=== PATIENT | female | born 1970 | race Caucasian/White ===

== ENCOUNTER 2019-10-09 20:42 | Emergency (ER) | payer OTHER ==
[~2019-10-09] VITALS: Ht 160 cm; Wt 89.8 kg
[2019-10-09 20:46] VITALS: BP 153/74
[2019-10-09 20:54] VITALS: BP 153/74
[2019-10-09] MEDS ORDERED: ATIVAN ONE (20:58)
[2019-10-09] MEDS ORDERED: ZOFRAN ODT ONE (20:59)
[2019-10-09] MEDS ORDERED: ADACEL VIAL IM ONE ×2 (21:00→21:08)
[2019-10-09] MEDS ORDERED: ATIVAN PO STA (21:00)
[2019-10-09] MEDS ORDERED: ZOFRAN ODT SL PRN (21:00)
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
--- NOTE | 2019-10-09 21:33 | DIREP ---
PROCEDURE:XRAY FOOT MIN 3 VWS-RT COMPARISON:None. INDICATIONS:injury FINDINGS:AP, lateral, and oblique view. BONES:No evidence of acute fracture. Small inferior calcaneal bone spur. JOINTS:Normal. SOFT TISSUES:Marked dorsal foot soft tissue swelling. OTHER:No additional findings. CONCLUSION:No evidence of acute fracture. Significant dorsal foot soft tissue swelling. Dictated by: Mauro Barba MD on 10/09/2019 at 09:30 PM
== END 2019-10-09 21:42 | disposition home or self-care (01) ==
LOC: ER 20:42 → EEVIPCON 20:42 → ER 21:42
DX: S90.31XA Contusion of right foot, initial encounter (principal); F43.20 Adjustment disorder, unspecified; E07.9 Disorder of thyroid, unspecified; I10 Essential (primary) hypertension; Z63.4 Disappearance and death of family member; Z79.899 Other long term (current) drug therapy; Z90.710 Acquired absence of both cervix and uterus; Z98.84 Bariatric surgery status; W22.8XXA Striking against or struck by other objects, initial encounter; Y93.89 Activity, other specified; Y92.89 Other specified places as the place of occurrence of the external cause; Y99.8 Other external cause status
CPT/HCPCS: 73630; 90471; 90715; 99283; J2060

== ENCOUNTER → 2019-12-22 | Outpatient (CLI) | payer OTHER ==
--- NOTE | 2019-12-22 13:28 | DIREP ---
PROCEDURE:Digital Screening Mammogram TECHNIQUE:MLO and CC digital images of each breast are provided. Computer Assisted Detection (CAD) was utilized. COMPARISON:[facility], , MAMMO BILATERAL SCREENING, 01/05/2019, 11:30 AM. INDICATIONS:SCREENING BREAST COMPOSITION:The breasts are heterogeneously dense, which may obscure small masses. FINDINGS:There are no grouped microcalcifications, masses, or architectural distortions to suggest malignancy. There is no significant change as compared with the previous examination(s). IMPRESSION:No mammographic evidence of malignancy. RECOMMENDATIONS:Routine Screening Mammography per [employer] guidelines. OVERALL FINAL ASSESSMENT:BI-RADS 2 - Benign Mammogram Note: This facility participates in a mammography screening patient reminder system. Dictated by: Layton Jorgensen M.D. on 12/22/2019 at 01:21 PM
== END | disposition home or self-care (01) ==
LOC: RAD 10:06
PROVIDERS: ATTEND Pediatrics
DX: Z12.31 Encounter for screening mammogram for malignant neoplasm of breast (principal)
CPT/HCPCS: 77067